=== PATIENT | male | born 1965 | race Two or more races ===

== ENCOUNTER 2020-07-29 00:14 | Inpatient (IN) | payer SELFPAY ==
[~2020-07-29] VITALS: Ht 172.7 cm; Wt 80.7 kg
[2020-07-29] MEDS ORDERED: SODIUM CHLORIDE 0.9% 1,000 ML IV ONE (00:37)
[2020-07-29 00:54] LABS: BASOPHILS % 1.1 % (0.0-2.0); EOSINOPHILS % 1.3 % (0.0-5.0); HEMATOCRIT. 43.7 % (42.0-52.0); HEMOGLOBIN. 15.1 g/dL (14.0-18.0); LYMPHOCYTES % 22.7 % (20.0-50.0); MEAN CORPUSCULAR HEMOGLOBIN 30.3 pg (28.0-32.0); MEAN CORPUSCULAR VOLUME 87.4 fL (80.0-94.0); MEAN PLATELET VOLUME 6.7 fl (7.4-10.4); MONOCYTES % 10.2 % (2.0-8.0); NEUTROPHILS % 64.7 % (40.0-76.0); PLATELET 238 x1000/uL (130-400); RED CELL DISTRIBUTION WIDTH 13.9 % (11.6-14.6)
[2020-07-29 01:04] LABS: CHLORIDE 108 mEq/L (98-107)
[2020-07-29] MEDS ORDERED: IOHEXOL-350 100 ML BOTTLE ONE (04:27)
[2020-07-29] MEDS ORDERED: MAGNESIUM/ALUMINUM HYDROXIDE/SIMETHICONE 30ML UDC PO PRN (07:15)
[2020-07-29] MEDS ORDERED: NITROGLYCERIN 0.4MG TABLET SL SL PRN (07:15)
[2020-07-29] MEDS ORDERED: GUAIFENESIN 200MG/10ML SUGAR FREE UDC PO PRN (07:15)
[2020-07-29] MEDS ORDERED: DOCUSATE SODIUM 100MG CAPSULE PO PRN (07:15)
[2020-07-29] MEDS ORDERED: IPRATROPIUM/ALBUTEROL 0.5-3(2.5)MG/3ML NEB NEB PRN (07:15)
[2020-07-29] MEDS ORDERED: ONDANSETRON HCL 4MG/2ML INJ IV PRN (07:15)
[2020-07-29] MEDS ORDERED: ACETAMINOPHEN 325MG TABLET PO PRN ×2 (07:15)
[2020-07-29] MEDS ORDERED: CLONIDINE 0.1MG TABLET PO PRN (07:15)
[2020-07-29 08:00] VITALS: BP 108/75
[2020-07-29 08:30] VITALS: BP 108/75
[2020-07-29] MEDS: FAMOTIDINE 20MG TABLET PO SCH ×2 (09:15→20:39)
[2020-07-29] MEDS: ENOXAPARIN 40MG/0.4ML SYR SUBCUT SCH (09:15)
[2020-07-29] MEDS ORDERED: IMIT25 MT (09:46)
[2020-07-29 11:34] LABS: ETHANOL BLOOD < 10 mg/dL
[2020-07-29 11:36] LABS: LDL CHOLESTEROL 107 mg/dL (5-100)
[2020-07-29 11:39] LABS: HDL CHOLESTEROL 45 mg/dL (40-59)
[2020-07-29 12:00] VITALS: BP 114/99
[2020-07-29 16:00] VITALS: BP 108/59
[2020-07-29 17:35] LABS: CREATINE KINASE 74 IU/L (39-308)
[2020-07-29 18:56] LABS: *AMPHETAMINES SCREEN URINE PRESUMTIVE POSITIVE (NEGATIVE); *BARBITURATES SCREEN URINE NEGATIVE (NEGATIVE); *BENZODIAZEPINES SCREEN URINE NEGATIVE (NEGATIVE)
[2020-07-29 18:57] LABS: *COCAINE SCREEN URINE NEGATIVE (NEGATIVE); CANNABINOID URINE SCREEN NEGATIVE (NEGATIVE); METHADONE URINE SCREEN NEGATIVE (NEGATIVE); OPIATES URINE SCREEN NEGATIVE (NEGATIVE); PHENCYCLIDINE URINE SCREEN NEGATIVE (NEGATIVE)
[2020-07-29 20:00] VITALS: BP 112/73
[2020-07-29] MEDS ORDERED: ZOLPIDEM TARTRATE 5MG TABLET PO PRN (21:00)
[2020-07-30] VITALS: BP 122/86
[2020-07-30 00:08] LABS: CREATINE KINASE 100 IU/L (39-308)
[2020-07-30 04:00] VITALS: BP 113/79
[2020-07-30 08:00] VITALS: BP 99/61
[2020-07-30] MEDS: FAMOTIDINE 20MG TABLET PO SCH (09:00)
[2020-07-30] MEDS: ENOXAPARIN 40MG/0.4ML SYR SUBCUT SCH (09:00)
[2020-07-30 10:58] VITALS: BP 99/61
== END 2020-07-30 11:40 | disposition home or self-care (01) | DRG 204 ==
LOC: ER 00:14 → 5WST 05:51 → ENRESERV 07:18
PROVIDERS: ADMIT Internal Medicine; ATTEND Internal Medicine
DX: R55 Syncope and collapse (principal); M54.9 Dorsalgia, unspecified; G43.909 Migraine, unspecified, not intractable, without status migrainosus; Z65.8 Other specified problems related to psychosocial circumstances; Z79.899 Other long term (current) drug therapy; Z88.8 Allergy status to other drugs, medicaments and biological substances; Z98.1 Arthrodesis status; Z76.5 Malingerer [conscious simulation]
CPT/HCPCS: 36415; 71045; 71275; 80053; 80061; 80305; 80320; 82550; 82553; 83036; 83880; 84484; 85025; 93005; 93970; 97162; 97166; 99291; J1650; J7030; Q9967; G0480